=== PATIENT | male | born 1980 ===

== ENCOUNTER 2017-04-01 20:38 | Emergency (ER) | payer SELFPAY ==
[2017-04-01 21:06] VITALS: RESP 20
[2017-04-01] MEDS ORDERED: Sodium Chloride 0.9% 500 ML IV ONE (21:19)
[2017-04-01] MEDS ORDERED: Albuterol-Ipratrop 3 mg / 0.5 (3 ml) UD INH STA (21:20)
[2017-04-01] MEDS ORDERED: Magnesium Sulfate 1 gm in D5W 1 GM/100 ML BAG IV ONE (21:20)
--- NOTE | 2017-04-01 21:27 | C.PDOC ---
History Of Present Illness 36 y/o male with PMHx of asthma, no hx of intubation or recent ( for pas 5 yrs ) ICU admission, comes in for evaluation of cold symptoms for 2 weeks associated with nasal congestion, dry cough. Pt reports, his cough has worsened for past few days with associated chest tightness and wheezing. Not improving with nebulizer treatments at home. Otherwise, pt denies high fever, headache, dizziness, neck pain, drooling, dysphagia, CP, palpitation, abd. pain , V/D, back pain, rash. Ambulate to Ed for evaluation, not n resp. distress. Time Seen by Provider: 04/01/17 21:10 Chief Complaint (Nursing): Cough, Cold, Congestion History Per: Patient History/Exam Limitations: no limitations Onset/Duration Of Symptoms: Days (x 2 weeks) Current Symptoms Are (Timing): Still Present Associated Symptoms: Cough Past Medical History Reviewed: Historical Data, Nursing Documentation, Vital Signs Vital Signs: Last Vital Signs Temp 97.7 F 04/02/17 00:10 Pulse 58 L 04/02/17 00:10 Resp 20 04/02/17 00:10 BP 109/68 04/02/17 00:10 Pulse Ox 99 04/02/17 00:10 - Medical History PMH: Asthma, Bronchitis Surgical History: No Surg Hx Family History: States: Unknown Family Hx - Social History Hx Alcohol Use: Yes Hx Substance Use: No - Immunization History Hx Tetanus Toxoid Vaccination: Yes (tetanus up to date.) Review Of Systems Constitutional: Negative for: Fever Cardiovascular: Positive for: Other (chest tightness) Respiratory: Positive for: Cough, Wheezing Physical Exam - Physical Exam Appears: Well, Non-toxic, No Acute Distress Skin: Normal Color, Warm, Dry, No Rash Head: Normacephalic Eye(s): bilateral: PERRL Ear(s): Bilateral: Normal Nose: No Flaring, Discharge (B/L clear) Oral Mucosa: Moist, No Drooling Tongue: Normal Appearing Lips: Normal Appearing Throat: Erythema (mild B/L, no edema), No Drooling Neck: Trachea Midline, Supple, Other ((-) meningeal sign) Cardiovascular: Rhythm Regular, No Murmur, No JVD Respiratory: No Decreased Breath Sounds, No Accessory Muscle Use, No Rhonchi, No Stridor, Wheezing (Diffuse bilateral expiratory wheezing. BS equal B/L) Gastrointestinal/Abdominal: Soft, No Tenderness, No Distention Rectal: Normal Exam Back: No CVA Tenderness Extremity: Normal ROM, No Pedal Edema, No Deformity, No Swelling Neurological/Psych: Oriented x3, Normal Speech, Normal Motor, Normal Sensation, Normal Reflexes ED Course And Treatment O2 Sat by Pulse Oximetry: 98 (RA) Pulse Ox Interpretation: Normal - Radiology CXR: Interpreted by Me, Viewed By Me CXR Interpretation: Yes: No Acute Disease Progress Note: Ordered CXR. Pt given IV fluids, duoneb nebulizer treatment, solu -medrol, and magnesium sulfate. Pt was OBS in Ed for 2 hours and reorts moderate improvement in sx. Pt admits, " my ches is not tight anymore". PulseOx 99%RA. afebrile, hemodynamicaly stable. non-toxic. not in resp. distress. Neck: Supple, (-) meningeal sign. ENT: no acute findings. Lungs: mod improvemnet in wheezing B/L, BS euqal B/L. CVS: (+)S1S2, reg. Abd: benign. back: (-) CVA tenderness. CXR (-) acute findings. Pt has clinical findings c/w asthma exacerbation. Pt advised, ref. to F/u with PMD in 2-3 days for re-eval. return if any new changes. Disposition Counseled Patient/Family Regarding: Studies Performed, Diagnosis, Need For Followup, Rx Given - Disposition Referrals: [facility] [Outside] Disposition: HOME/ ROUTINE Disposition Time: 23:27 Condition: STABLE Additional Instructions: ENCOURAGE FLUIDS TAKE MEDICATION PRESCRIBED FOLLOW UP WITH PMD AND PULMONOLOGY IN 1-2 DAYS FOR RE-EVALUATION. RETURN TO ED IF ANY WORSENING OR NEW CHANGES. 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 - Scribe Statement The provider has reviewed the documentation as recorded by the Scribe (Judit Carter) All medical record entries made by the Scribe were at my direction and personally dictated by me. I have reviewed the chart and agree that the record accurately reflects my personal performance of the history, physical exam, medical decision making, and the department course for this patient. I have also personally directed, reviewed, and agree with the discharge instructions and disposition.
[2017-04-01] MEDS ORDERED: Magnesium Sulfate 1 gm in D5W 1 GM/100 ML BAG IVPB ONE (21:53)
[2017-04-02 00:11] VITALS: BP 109/68; PULSE 58; TEMP 97.7
[2017-04-02 00:43] VITALS: O2SAT 98
--- NOTE | 2017-04-02 08:40 | RAD ---
Chest x-ray two views History: Cough Comparison: None available. Findings: Diffuse increased interstitial lung markings bilaterally which may represent subtle infiltrate and or edema. Clinical correlation. Heart size within normal limits. Degenerative changes in the spine Impression: Diffuse increased interstitial lung markings bilaterally which may represent subtle infiltrate and or edema. Clinical correlation.
== END 2017-04-02 00:17 | disposition home or self-care (01) ==
LOC: C.ER 20:38
DX: J45.901 Unspecified asthma with (acute) exacerbation (principal)
CPT/HCPCS: 71020; 94640; 96374; 96375; 99284; J2930; J3475; J7040